=== PATIENT | male | born 1945 | race Caucasian/White ===

== ENCOUNTER 2017-01-02 07:54 | Outpatient (CLI) | payer MEDICARE, OTHER | END 2017-01-02 07:55 | disposition home or self-care (01) | DX: I80.10 Phlebitis and thrombophlebitis of unspecified femoral vein (principal) ==

== ENCOUNTER 2017-02-13 08:05 | Outpatient (CLI) | payer MEDICARE, OTHER | END 2017-02-13 08:06 | disposition home or self-care (01) | DX: I80.10 Phlebitis and thrombophlebitis of unspecified femoral vein (principal) ==

== ENCOUNTER 2017-06-26 07:19 | Outpatient (CLI) | payer MEDICARE, OTHER ==
[2017-06-26 10:38] LABS: INR 2.9 (0.8-1.2); PT - PROTHROMBIN TIME 32.8 secs (9.9-12.6)
== END 2017-06-26 07:20 | disposition home or self-care (01) ==
LOC: LAB.F 07:19
PROVIDERS: ATTEND Internal Medicine
DX: I80.10 Phlebitis and thrombophlebitis of unspecified femoral vein (principal)
CPT/HCPCS: 36415; 85610

== ENCOUNTER 2017-08-14 07:48 | Outpatient (CLI) | payer MEDICARE, OTHER ==
[2017-08-14 12:30] LABS: INR 3.3 (0.8-1.2); PT - PROTHROMBIN TIME 37.4 secs (9.9-12.6)
== END 2017-08-14 07:49 | disposition home or self-care (01) ==
LOC: LAB.F 07:48
PROVIDERS: ATTEND Internal Medicine
DX: I80.10 Phlebitis and thrombophlebitis of unspecified femoral vein (principal)
CPT/HCPCS: 36415; 85610

== ENCOUNTER 2017-10-02 07:36 | Outpatient (CLI) | payer MEDICARE, OTHER ==
[2017-10-02 12:17] LABS: INR 3.4 (0.8-1.2); PT - PROTHROMBIN TIME 36.6 secs (9.9-12.6)
== END 2017-10-02 07:37 | disposition home or self-care (01) ==
LOC: LAB.F 07:36
PROVIDERS: ATTEND Internal Medicine
DX: I80.10 Phlebitis and thrombophlebitis of unspecified femoral vein (principal); Z79.01 Long term (current) use of anticoagulants
CPT/HCPCS: 36415; 85610

== ENCOUNTER 2017-11-13 07:34 | Outpatient (CLI) | payer MEDICARE, OTHER ==
[2017-11-13 10:33] LABS: INR 5.5 (0.8-1.2)
== END 2017-11-13 07:35 | disposition home or self-care (01) ==
LOC: LAB.F 07:34
PROVIDERS: ATTEND Internal Medicine
DX: I80.10 Phlebitis and thrombophlebitis of unspecified femoral vein (principal); Z79.01 Long term (current) use of anticoagulants
CPT/HCPCS: 36415; 85610

== ENCOUNTER 2017-11-20 07:36 | Outpatient (CLI) | payer MEDICARE, OTHER ==
[2017-11-20 10:56] LABS: PT - PROTHROMBIN TIME 49.7 secs (9.9-12.6)
[2017-11-20 11:14] LABS: INR 4.7 (0.8-1.2)
== END 2017-11-20 07:37 | disposition home or self-care (01) ==
LOC: LAB.F 07:36
PROVIDERS: ATTEND Internal Medicine
DX: I80.10 Phlebitis and thrombophlebitis of unspecified femoral vein (principal); Z79.01 Long term (current) use of anticoagulants
CPT/HCPCS: 36415; 85610

== ENCOUNTER 2017-12-04 07:07 | Outpatient (CLI) | payer MEDICARE, OTHER ==
[2017-12-04 10:12] LABS: PT - PROTHROMBIN TIME 73.2 secs (9.9-12.6)
== END 2017-12-04 07:08 | disposition home or self-care (01) ==
LOC: LAB.F 07:07
PROVIDERS: ATTEND Internal Medicine
DX: I80.10 Phlebitis and thrombophlebitis of unspecified femoral vein (principal); Z79.01 Long term (current) use of anticoagulants
CPT/HCPCS: 36415; 85610

== ENCOUNTER 2017-12-23 07:07 | Outpatient (CLI) | payer MEDICARE, OTHER ==
[2017-12-23 11:46] LABS: PT - PROTHROMBIN TIME 49.5 secs (9.9-12.6)
[2017-12-23 14:23] LABS: INR 4.6 (0.8-1.2)
== END 2017-12-23 07:08 | disposition home or self-care (01) ==
LOC: LAB.F 07:07
PROVIDERS: ATTEND Internal Medicine
DX: I80.10 Phlebitis and thrombophlebitis of unspecified femoral vein (principal); Z79.01 Long term (current) use of anticoagulants
CPT/HCPCS: 36415; 85610

== ENCOUNTER 2019-06-02 20:06 | Emergency (ER) | payer MEDICARE, OTHER ==
--- NOTE | 2019-06-02 20:29 | ED Physician Documentation ---
PD HPI SKIN - Stated complaint Stated Complaint: BUG BITE - Chief complaint Chief Complaint: Wound - History obtained from History obtained from: Patient - History of Present Illness Timing - onset: Yesterday Timing - duration: Hours Timing - details: Gradual onset, Still present Location: LUE Quality / character: Itchy, Painful, Discolored, Swelling, Draining Associated symptoms: No: Fever, Myalgias, Headache, Facial swelling Contributing factors: Insect bite /sting Similar symptoms before: Has not had sx before Recently seen: Not recently seen - Additional information Additional information: 74-year-old male on Coumadin with a protein S syndrome has developed swelling to his left elbow. He found a small area that he felt was a bug bite this area widened and reddened and he was able to poke some material out of it earlier today. He states that last night he found that this area was a bit swollen and this morning it seemed a little better and then this afternoon much worse. He feels the swelling is going up the arm and down the arm as well as redness. Review of Systems Constitutional: denies: Fever, Chills, Myalgias Eyes: denies: Decreased vision Ears: denies: Ear pain Nose: denies: Rhinorrhea / runny nose, Congestion Throat: denies: Sore throat Respiratory: denies: Dyspnea, Cough GI: denies: Abdominal Pain, Nausea, Vomiting : denies: Dysuria, Frequency Skin: reports: Bite / sting Musculoskeletal: reports: Extremity pain. denies: Neck pain, Back pain Neurologic: denies: Generalized weakness, Focal weakness, Numbness PD PAST MEDICAL HISTORY - Past Medical History Cardiovascular: Deep vein thrombosis, Pulmonary embolism Neuro: Seizure disorder Other Past Medical History: Protein s deficiency - Past Surgical History Past Surgical History: No - Present Medications Home Medications: Ambulatory Orders Medication Instructions Recorded Confirmed Warfarin Sodium [Coumadin] 7.5 mg PO 04/03/16 Warfarin [Coumadin] 10 mg PO 04/03/16 Levetiracetam [Keppra] 500 mg PO BID #60 tablet 04/04/16 Cephalexin [Keflex] 500 mg PO Q6H #28 capsule 06/02/19 - Allergies Allergies/Adverse Reactions: Allergies Allergy/AdvReac Type Severity Reaction Status Date / Time No Known Drug Allergies Allergy Verified 06/02/19 20:15 - Social History Does the pt smoke?: No Smoking Status: Never smoker Does the pt drink ETOH?: Yes Does the pt have substance abuse?: No - Immunizations Immunizations are current?: Yes PD ED PE NORMAL - Vitals Vital signs reviewed: Yes (normal ) - General General: Alert and oriented X 3, No acute distress, Well developed/nourished - HEENT HEENT: Atraumatic, PERRL, EOMI - Respiratory Respiratory: No respiratory distress - Derm Derm: Normal color, Warm and dry - Extremities Extremities: Other (over the left elbow is a swollen olecrnon bursa and erythema that extends proximal to the distal humerus and distally to the proximal forearm about 15cm total without lymphangitic streaking. ) - Neuro Neuro: Alert and oriented X 3, mill tender 2-12 intact, No motor deficit, No sensory deficit, Normal speech Eye Opening: Spontaneous Motor: Obeys Commands Verbal: Oriented GCS Score: 15 - Psych Psych: Normal mood, Normal affect Results - Vitals Vitals: Vital Signs - 24 hr 06/02/19 06/02/19 20:10 21:57 Temperature 37.4 C 37.4 C Heart Rate 91 65 Respiratory 18 16 Rate Blood Pressure 132/63 H 110/54 L O2 Saturation 97 97 Oxygen O2 Source Room air - Labs Labs: Laboratory Tests 06/02/19 21:04 PT 39.5 H INR 3.5 H Procedures - Abscess I&D (location) left elbow Preparation: Confirmed with ultrasound, Chlorhexadine, Lidocaine 1% Incision: Incised with scalpel, Irrigated, Packed, Culture obtained, Other (clear bloody fluid) Other: Pt tolerated well, Dressing applied, Antibiotic prescribed PD MEDICAL DECISION MAKING - ED course Complexity details: reviewed old records, re-evaluated patient, considered differential, d/w patient ED course: 74 y/o male with swelling to the olecrenon bursa and with surrounding erythema has fluid in the bursa and this is opened and drained and irrigated. A culture is obtained and he is placed on keflex with surrounding cellulitis. The margins are outlined with a surgical marker at 10pm. Departure - Departure Disposition: 01 Home, Self Care Clinical Impression: Cellulitis and abscess of upper arm and forearm Olecranon bursa abscess Qualifiers: Laterality: left Qualified Code(s): M71.022 - Abscess of bursa, left elbow Condition: Stable Instructions: ED Abscess IandD Follow-Up: ROBYN URIOSTEGUI MD [Primary Care Provider] - Prescriptions: Cephalexin [Keflex] 500 mg PO Q6H #28 capsule Comments: Tonight your INR was 3.5 and because you are on an antibiotic you should have your INR rechecked in about 3 days. Our expectation is that the redness and swelling received day by day and if the redness extends past the margins marked with a surgical marker the recommendation is to come back to the hospital for admission for treatment of cellulitis failing outpatient management.
[2019-06-02] MEDS ORDERED: BUFFERED LIDOCAINE 10 ML SYRINGE SUBQ STA (20:50)
[2019-06-02 21:26] LABS: INR 3.5 (0.8-1.2); PT - PROTHROMBIN TIME 39.5 secs (9.9-12.6)
[2019-06-02 21:57] VITALS: BP 110/54
[2019-06-02] MEDS ORDERED: CEPHALEXIN 250 MG Prepack 8 CAP BOTTLE PO ONE (22:21)
[2019-06-03] MEDS ORDERED: CEPHALEXIN 250 MG Prepack 8 CAP BOTTLE PO SCH (09:00)
== END 2019-06-02 22:20 | disposition home or self-care (01) ==
LOC: ED 20:06
DX: L03.114 Cellulitis of left upper limb (principal); M71.022 Abscess of bursa, left elbow; D68.59 Other primary thrombophilia; Z79.01 Long term (current) use of anticoagulants
CPT/HCPCS: 10060; 36415; 85610; 87070; 87181; 87205

== ENCOUNTER 2019-06-03 21:46 | Emergency (ER) | payer MEDICARE, OTHER ==
--- NOTE | 2019-06-03 23:19 | ED Physician Documentation ---
History of Present Illness - Stated complaint Stated Complaint: RED WOUND/ARM - Chief complaint Chief Complaint: Wound - History obtained from History obtained from: Patient - History of Present Illness Timing: How many days ago (4) - Additonal information Additional information: 74-year-old male started with a small red lump on his left elbow about 4 days ago that look like he had a bug bite. He drained some material out of that the following day when it came to ahead and subsequently redness and pain and swelling have increased onto his elbow and he was seen in the emergency department last night and he had some swelling of the olecranon bursa which was opened and drained clear fluid and he had cellulitis in an area that was marked over his elbow and this was measured today at 18 cm from the surgical marker. Today this is extended all the way to his wrist and up his arm. It now measures 38 cm.He is failing outpatient management of cellulitis. Review of Systems Constitutional: reports: Chills, Myalgias, Fatigue Eyes: denies: Decreased vision Ears: denies: Ear pain Nose: denies: Rhinorrhea / runny nose, Congestion Throat: denies: Sore throat Cardiac: denies: Chest pain / pressure, Palpitations Respiratory: denies: Dyspnea GI: denies: Abdominal Pain, Nausea, Vomiting, Constipation, Diarrhea : denies: Dysuria, Frequency Skin: reports: Bite / sting Musculoskeletal: reports: Extremity pain. denies: Neck pain, Back pain Neurologic: denies: Generalized weakness, Focal weakness, Numbness PD PAST MEDICAL HISTORY - Past Medical History Past Medical History: Yes Cardiovascular: Deep vein thrombosis, Pulmonary embolism Respiratory: None Neuro: Seizure disorder Endocrine/Autoimmune: None GI: None : None HEENT: None Psych: None Musculoskeletal: None Derm: None - Past Surgical History Past Surgical History: No - Present Medications Home Medications: Ambulatory Orders Medication Instructions Recorded Confirmed Warfarin Sodium [Coumadin] 7.5 mg PO 04/03/16 Warfarin [Coumadin] 10 mg PO 04/03/16 Levetiracetam [Keppra] 500 mg PO BID #60 tablet 04/04/16 Cephalexin [Keflex] 500 mg PO Q6H #28 capsule 06/02/19 Amox/Clav 875/125 [Augmentin] 1 each PO Q12H #14 tablet 06/04/19 Sulfamethoxazole/Trimethoprim 1 each PO BID #14 tablet 06/04/19 [Sulfamethoxazole-Tmp Ds Tablet] - Allergies Allergies/Adverse Reactions: Allergies Allergy/AdvReac Type Severity Reaction Status Date / Time No Known Drug Allergies Allergy Verified 06/03/19 21:57 - Social History Does the pt smoke?: No Smoking Status: Never smoker Does the pt drink ETOH?: Yes Does the pt have substance abuse?: No - Immunizations Immunizations are current?: Yes - POLST Patient has POLST: No PD ED PE NORMAL - Vitals Vital signs reviewed: Yes (normal ) - General General: Alert and oriented X 3, No acute distress, Well developed/nourished, Other (flat affect) - HEENT HEENT: Atraumatic, PERRL, EOMI - Neck Neck: Supple, no meningeal sign - Cardiac Cardiac: RRR, No murmur - Respiratory Respiratory: No respiratory distress, Clear bilaterally - Abdomen Abdomen: Soft, Non tender - Back Back: No CVA TTP, No spinal TTP - Derm Derm: Normal color, Warm and dry - Extremities Extremities: No deformity, No edema, No calf tenderness / cord, Other (Over the left elbow the area of incision and drainage over the olecranon is flat today and mildly tender. There is no drainage from the area. There is erythema that expands on the margins drawn yesterday to the wrist and farther up the humerus. There is no other area that looks like an abscess. The cellulitis is measured today consuming a distance of 38 cm from the wrist to the proximal humerus and the measurement on the marked area is 18 cm.) - Neuro Neuro: Alert and oriented X 3, survey technologist 2-12 intact, No motor deficit, No sensory deficit, Normal speech Eye Opening: Spontaneous Motor: Obeys Commands Verbal: Oriented GCS Score: 15 - Psych Psych: Normal mood, Other (flat affect ) Results - Vitals Vitals: Vital Signs - 24 hr 06/03/19 06/03/19 06/04/19 21:54 22:24 00:32 Temperature 36.8 C Heart Rate 91 63 Respiratory 17 16 16 Rate Blood Pressure 128/66 136/76 H O2 Saturation 97 95 Oxygen O2 Source Room air - Labs Labs: Laboratory Tests 06/03/19 06/03/19 06/03/19 23:28 23:28 23:28 WBC 6.7 RBC 3.71 L Hgb 11.3 L Hct 34.7 L MCV 93.5 MCH 30.5 MCHC 32.6 RDW 13.7 Plt Count 156 MPV 10.8 Neut # (Auto) 4.1 Lymph # (Auto) 1.6 [place] # (Auto) 0.8 Eos # (Auto) 0.2 Baso # (Auto) 0.0 Absolute Nucleated RBC 0.00 Nucleated RBC % 0.0 PT 42.3 H INR 3.8 H Sodium 138 Potassium 4.0 Chloride 104 Carbon Dioxide 23 Anion Gap 11.0 BUN 21 H Creatinine 1.1 Estimated GFR (MDRD) 65 L Glucose 113 H Lactic Acid Calcium 8.8 Total Bilirubin 0.6 AST 31 ALT 29 Alkaline Phosphatase 74 Total Protein 6.8 Albumin 3.5 Globulin 3.3 Albumin/Globulin Ratio 1.1 Lipase 34 06/03/19 23:55 WBC RBC Hgb Hct MCV MCH MCHC RDW Plt Count MPV Neut # (Auto) Lymph # (Auto) [place] # (Auto) Eos # (Auto) Baso # (Auto) Absolute Nucleated RBC Nucleated RBC % PT INR Sodium Potassium Chloride Carbon Dioxide Anion Gap BUN Creatinine Estimated GFR (MDRD) Glucose Lactic Acid 0.7 Calcium Total Bilirubin AST ALT Alkaline Phosphatase Total Protein Albumin Globulin Albumin/Globulin Ratio Lipase PD MEDICAL DECISION MAKING - ED course Complexity details: reviewed results, re-evaluated patient, considered differential, d/w patient ED course: 74-year-old male on coumadin for DVT PE with protein S deficiency with cellulitis failing outpatient management with Keflex. He has had a doubling in the size of his cellulitis overnight and I have asked our hospitalist to admit him into the hospital. He is administered a dose of vancomycin and Rocephin here in the emergency department. In consultation with the hospitalist the patient's white blood cell count is not elevated he is not sick and he request that we give him these doses of antibiotic here and change him to double coverage on his antibiotic as an outpatient. The patient is amenable to this and would prefer to go home. Departure - Departure Disposition: 01 Home, Self Care Clinical Impression: Cellulitis and abscess of upper arm and forearm, Failure of outpatient treatment Condition: Stable Instructions: ED Infec Skin Cellulitis, ED Abscess IandD Follow-Up: Irvin Benson MD [Primary Care Provider] - Prescriptions: Amox/Clav 875/125 [Augmentin] 1 each PO Q12H #14 tablet Sulfamethoxazole/Trimethoprim [Sulfamethoxazole-Tmp Ds Tablet] 1 each PO BID #14 tablet
[2019-06-03 23:34] LABS: BASOPHILS % (AUTO) 0.5 %; EOSINOPHILS # (AUTO) 0.2 10^3/uL (0.0-0.7); EOSINOPHILS % (AUTO) 2.6 %; HGB - HEMOGLOBIN 11.3 g/dL (14.0-18.0); LYMPHOCYTES # (AUTO) 1.6 10^3/uL (1.5-3.5); LYMPHOCYTES % (AUTO) 23.5 %; MEAN CORPUSCULAR HEMOGLOBIN 30.5 pg (27.0-31.0); MEAN CORPUSCULAR HGB CONC 32.6 g/dL (32.0-36.0); MEAN CORPUSCULAR VOLUME 93.5 fL (80.0-94.0); MEAN PLATELET VOLUME 10.8 fL (7.4-11.4); MONOCYTES # (AUTO) 0.8 10^3/uL (0.0-1.0); MONOCYTES % (AUTO) 11.9 %; NEUTROPHILS # (AUTO) 4.1 10^3/uL (1.5-6.6); NEUTROPHILS % (AUTO) 61.3 %; PLT - PLATELET COUNT 156 10^3/uL (130-450); RED BLOOD COUNT 3.71 10^6/uL (4.70-6.10); RED CELL DISTRIBUTION WIDTH 13.7 % (12.0-15.0); WHITE BLOOD COUNT 6.7 x10^3/uL (4.8-10.8)
[2019-06-03 23:42] LABS: INR 3.8 (0.8-1.2); PT - PROTHROMBIN TIME 42.3 secs (9.9-12.6)
[2019-06-03 23:52] LABS: ALBUMIN 3.5 g/dL (3.2-5.5); ALBUMIN/GLOBULIN RATIO 1.1 (1.0-2.2); BILIRUBIN,TOTAL 0.6 mg/dL (0.2-1.0); CALCIUM 8.8 mg/dL (8.5-10.3); CREATININE 1.1 mg/dL (0.6-1.2); TOTAL PROTEIN 6.8 g/dL (6.7-8.2)
[2019-06-04] MEDS ORDERED: VANCOMYCIN INJ 1 GM in SODIUM CHLORIDE 0.9% 500 ML IV STA (00:13)
[2019-06-04] MEDS ORDERED: cefTRIAXone 1 GM in SODIUM CHLORIDE 0.9% MINIBAG 100 ML IV STA (00:23)
[2019-06-04 02:48] VITALS: BP 128/76
== END 2019-06-04 03:16 | disposition home or self-care (01) ==
LOC: ED 21:46
DX: L03.114 Cellulitis of left upper limb (principal); L02.414 Cutaneous abscess of left upper limb; D68.59 Other primary thrombophilia; Z86.718 Personal history of other venous thrombosis and embolism; Z79.01 Long term (current) use of anticoagulants
CPT/HCPCS: 36415; 80053; 83605; 83690; 85025; 85610; 87040; 96365; 96366; 96367; 99284; J3370

== ENCOUNTER 2023-01-31 12:51 | Outpatient (CLI) | payer MEDICARE, OTHER ==
[2023-01-31 14:47] LABS: INR 3.9 (0.8-1.2); PT - PROTHROMBIN TIME 40.6 secs (9.9-12.6)
== END 2023-01-31 12:52 | disposition home or self-care (01) ==
LOC: LAB.S 12:51
PROVIDERS: ATTEND Internal Medicine
DX: I82.419 Acute embolism and thrombosis of unspecified femoral vein (principal)
CPT/HCPCS: 36415; 36416; 85610